=== PATIENT | male | born 1975 | race American Indian/Alaskan Native ===

== ENCOUNTER 2017-06-30 15:20 | Emergency (ER) | payer MEDICAID ==
[2017-06-30 15:31] VITALS: RESP 16; O2SAT 100
[2017-06-30 17:12] LABS: BASO # 0.1 K/uL (0.0-0.2); BASO % 0.8 % (0.0-2.0); EOS # 0.1 K/uL (0.0-0.7); EOS % 0.8 % (0.0-4.0); HEMATOCRIT 45.1 % (35.0-51.0); LYMPH # 4.4 K/uL (1.0-4.3); LYMPH % 57.1 % (20.0-40.0); MEAN CELL VOLUME 87.8 fL (80.0-94.0); MEAN CORPUSCULAR HEMOGLOBIN 28.9 pg (27.0-31.0); MEAN CORPUSCULAR HGB CONC 32.9 g/dL (33.0-37.0); MEAN PLATELET VOLUME 7.1 fL (7.2-11.7); MONO # 0.3 K/uL (0.0-0.8); MONO % 4.4 % (0.0-10.0); NRBC % 0.1 % (0.0-2.0); RED CELL DISTRIBUTION WIDTH 14.2 % (11.5-14.5); WHITE BLOOD COUNT 7.6 K/uL (4.8-10.8)
[2017-06-30 17:14] LABS: RBC URINE 2 /hpf (0-3); URINE BILIRUBIN NEGATIVE (NEGATIVE); URINE BLOOD NEGATIVE (NEGATIVE); URINE COLOR Yellow (YELLOW); URINE GLUCOSE (UA) NORMAL (Normal); URINE KETONE NEGATIVE (NEGATIVE); URINE LEUKOCYTE ESTERASE NEG Leu/uL (Negative); URINE PROTEIN NEGATIVE (NEGATIVE); WBC URINE < 1 /hpf (0-5)
[2017-06-30 17:37] LABS: ALB/GLOB RATIO 1.5 (1.0-2.1); ALKALINE PHOSPHATASE 102 U/L (38-126); ALT/SGPT 36 U/L (21-72); AST/SGOT 48 U/L (17-59); BILIRUBIN,TOTAL 0.9 mg/dL (0.2-1.3); BLOOD UREA NITROGEN 12 mg/dL (9-20); CALCIUM 9.1 mg/dl (8.6-10.4); CARBON DIOXIDE 31 mmol/L (22-30); CHLORIDE 100 mmol/L (98-107); GFR AFRICAN-AMERICAN > 60; GLUCOSE,RANDOM 77 mg/dL (75-110); SODIUM 137 mmol/L (132-148); TOTAL PROTEIN 7.5 g/dL (6.3-8.3)
--- NOTE | 2017-06-30 17:53 | C.PDOC ---
History Of Present Illness <Rayna Gautam - Last Filed: 06/30/17 19:03> <Abraham Moran Edmar - Last Filed: 06/30/17 20:41> 41 y/o male, with PMHx of kidney stones, and colon cancer, presents to ED c/o intermittent left side flank pain radiating to abdomen for the last 2 weeks. Denies trying any OTC medication for his symptoms. Otherwise, denies n/v/d, or fever. (GreervinayreneaRayna) History Per: Patient History/Exam Limitations: no limitations Onset/Duration Of Symptoms: Days Current Symptoms Are (Timing): Still Present Radiation Of Pain To:: Flank Quality Of Discomfort: "Pain" Associated Symptoms: Back Pain. denies: Nausea, Vomiting, Diarrhea, Urinary Symptoms Exacerbating Factors: None Alleviating Factors: None Recent travel outside of the [place]: No Additional History Per: Patient <Rayna Gautam - Last Filed: 06/30/17 19:03> <Abraham Moran - Last Filed: 06/30/17 20:41> Time Seen by Provider: 06/30/17 16:12 Chief Complaint (Nursing): GI Problem Past Medical History Reviewed: Historical Data, Nursing Documentation, Vital Signs Family History: States: Unknown Family Hx - Social History Hx Alcohol Use: Yes Hx Substance Use: No - Immunization History Hx Tetanus Toxoid Vaccination: No Hx Influenza Vaccination: No Hx Pneumococcal Vaccination: No <Rayna Gautam - Last Filed: 06/30/17 19:03> Vital Signs: Last Vital Signs Temp 97.7 F 06/30/17 15:28 Pulse 83 06/30/17 15:28 Resp 16 06/30/17 15:28 BP 151/95 H 06/30/17 15:28 Pulse Ox 100 06/30/17 19:03 - [facility] Procedures INJECT/INFUSE NEC (09/12/05) Review Of Systems Except As Marked, All Systems Reviewed And Found Negative. Constitutional: Negative for: Fever, Chills Cardiovascular: Negative for: Chest Pain Respiratory: Negative for: Shortness of Breath Gastrointestinal: Positive for: Abdominal Pain. Negative for: Nausea, Vomiting , Diarrhea Genitourinary: Negative for: Dysuria, Frequency, Incontinence, Hematuria Musculoskeletal: Positive for: Back Pain Neurological: Negative for: Weakness, Numbness <Rayna Gautam - Last Filed: 06/30/17 19:03> Physical Exam - Physical Exam Appears: Non-toxic, No Acute Distress Skin: Normal Color, Warm, Dry Head: Atraumatic, Normacephalic Eye(s): bilateral: Normal Inspection Nose: Normal Oral Mucosa: Moist Neck: Normal ROM, Supple Chest: Symmetrical Cardiovascular: Rhythm Regular, No Murmur Respiratory: Normal Breath Sounds, No Rales, No Rhonchi, No Wheezing Gastrointestinal/Abdominal: Soft, Tenderness (left side), No Guarding, No Rebound Back: CVA Tenderness (left), No Vertebral Tenderness Extremity: Normal ROM Neurological/Psych: Oriented x3, Normal Speech <Rayna Gautam - Last Filed: 06/30/17 19:03> ED Course And Treatment - Laboratory Results Result Diagrams: 06/30/17 17:07 06/30/17 17:07 O2 Sat by Pulse Oximetry: 100 Pulse Ox Interpretation: Normal Progress Note: Blood work, UA, Abd & Pelvis CT scan ordered. Pain medication offered but patient refused. Pt will be signed over to Dr. Moran, pending results , re-evaluation, and disposition. <Rayna Gautam - Last Filed: 06/30/17 19:03> - Laboratory Results Result Diagrams: 06/30/17 17:07 06/30/17 17:07 <Abraham Moran - Last Filed: 06/30/17 20:41> Disposition - Disposition Disposition Time: 19:03 <Rayna Gautam - Last Filed: 06/30/17 19:03> Counseled Patient/Family Regarding: Diagnosis - Disposition Disposition Time: 20:39 - POA Present On Arrival: None <Abraham Moran - Last Filed: 06/30/17 20:41> - Disposition Referrals: [facility] [Outside] Disposition: HOME/ ROUTINE Condition: STABLE Prescriptions: Phenobarb/Hyoscy/Atropine/Scop [ Tablet] 16.2 mg PO Q6 #12 tablet Instructions: Abdominal Pain (ED), Enteritis (ED) Forms: [facility] ([place]) - Clinical Impression Clinical Impression: Abdominal pain, Enteritis - PA / SENIOR CONTROLLER / Resident Statement MD/DO has reviewed & agrees with the documentation as recorded. - Scribe Statement The provider has reviewed the documentation as recorded by the Scribe <Rayna Gautam - Last Filed: 06/30/17 19:03> <Abraham Moran - Last Filed: 06/30/17 20:41> - Scribe Statement Dunia Ruvalcaba All medical record entries made by the Scribe were at my direction and personally dictated by me. I have reviewed the chart and agree that the record accurately reflects my personal performance of the history, physical exam, medical decision making, and the department course for this patient. I have also personally directed, reviewed, and agree with the discharge instructions and disposition. (Rayna Gautam) Physician Patient Turnover Patient Signed Over To: Abraham Moran Handoff Comments: pending results, re-evaluation, and disposition. <Rayna Gautam - Last Filed: 06/30/17 19:03>
[2017-06-30] MEDS ORDERED: Iohexol 300 100 ML IJ ONE (18:29)
--- NOTE | 2017-06-30 19:58 | CT ---
EXAM: CT Abdomen and Pelvis With Intravenous Contrast EXAM DATE/TIME: 06/30/2017 4:53 PM CLINICAL HISTORY: 41 years old, male; Pain; Abdominal pain; Flank; Left lower quadrant (llq); Additional info: Abd pain TECHNIQUE: Axial computed tomography images of the abdomen and pelvis with intravenous contrast. All CT scans at this facility use one or more dose reduction techniques, viz.: automated exposure control; ma/kV adjustment per patient size (including targeted exams where dose is matched to indication; i.e. head); or iterative reconstruction technique. Coronal and sagittal reformatted images were created and reviewed. CONTRAST: 100 mL of OMNIPAQUE 300 administered intravenously. COMPARISON: There are no prior studies for comparison. FINDINGS: Lower thorax: Heart size is normal. Lung bases are clear ABDOMEN: Liver: There is a cyst in the liver.There is fatty infiltration of the liver. Gallbladder and bile ducts: unremarkable Pancreas: unremarkable Spleen: Spleen is unremarkable. There is an accessory spleen in the left upper quadrant. Adrenals: unremarkable Kidneys and ureters: There are small bilateral nonobstructing renal stones.Kidneys and ureters are otherwise unremarkable. Stomach and bowel: Stomach is incompletely distended. Rotation is normal. There is duodenal, proximal and mid small bowel wall and fold thickening. Thickening decreases in the distal small bowel. There is mild terminal ileal wall thickening. Appendix is unremarkable Colon is incompletely distended which limits evaluation. There is minimal diverticulosis. There is been partial sigmoid resection. There is a colocolic anastomosis in the left lower quadrant. Appendix: See stomach and bowel PELVIS: Bladder: unremarkable Reproductive: The prostate is enlarged.Seminal vesicles have the expected configuration. ABDOMEN and PELVIS: Intraperitoneal space: There is no free air or free fluid. Bones/joints: There is a bone island in the left ilium. There is minimal degenerative change of the spine. Soft tissues: There is postoperative scarring in the anterior abdominal wall in the midline. Vasculature: Vascular structures are unremarkable. Lymph nodes: There is no pathologic adenopathy. IMPRESSION: Enteritis, no obstruction; partial sigmoid resection with colocolic anastomosis in the left lower quadrant; fatty liver Additional findings as described above.
[2017-06-30] MEDS ORDERED: Belladonna-Phenobarbital PO STA (20:37)
[2017-06-30] MEDS ORDERED: Belladonna-Phenobarbital ONE (20:43)
[2017-06-30 20:50] VITALS: BP 150/90; PULSE 80; TEMP 98
== END 2017-06-30 20:49 | disposition home or self-care (01) ==
LOC: C.ER 15:20
DX: K52.9 Noninfective gastroenteritis and colitis, unspecified (principal); R10.9 Unspecified abdominal pain
CPT/HCPCS: 74177; 80053; 81001; 83690; 85025; 99285; Q9967